=== PATIENT | female | born 1955 | race Caucasian/White ===

== ENCOUNTER → 2022-02-27 | Outpatient (CLI) | payer BC, MEDICARE ==
[~2022-02-27] MED LIST: IOPAMIDOL 370 MG/ML 100 ML INFUS..BTL INJ ONE
[2022-02-27 10:23] LABS: CREATININE, SERUM 0.91 mg/dL (0.57-1.11)
== END ==
LOC: CT 09:32
PROVIDERS: ATTEND Emergency Medicine
DX: R10.9 Unspecified abdominal pain (principal)
CPT/HCPCS: 36415; 74177; 82565; 84520; Q9967

== ENCOUNTER → 2022-12-22 | Outpatient (CLI) | payer MEDICARE, OTHER | LOC: RAD 10:29 | PROVIDERS: ATTEND Emergency Medicine | DX: R06.00 Dyspnea, unspecified (principal); M17.0 Bilateral primary osteoarthritis of knee | CPT/HCPCS: 71046 ==